=== PATIENT | female | born 1980 | race Caucasian/White ===

== ENCOUNTER 2017-08-24 10:33 | Emergency (ER) | payer OTHER ==
[~2017-08-24] VITALS: Ht 170.2 cm; Wt 97.5 kg
[2017-08-24 15:51] VITALS: BP 131/80
--- NOTE | 2017-08-24 16:56 | ED NECK/BACK PAIN COMPLAINT ---
History of Present Illness General Chief Complaint: Low Back Pain/Injury Stated Complaint: BACK PAIN Source: patient Exam Limitations: no limitations Vital Signs & Intake/Output Vital Signs & Intake/Output ED Intake and Output 08/25 0000 08/24 1200 Intake Total 0 Output Total Balance 0 Intake, Oral 0 Patient 215 lb Weight Weight Reported by Patient Measurement Method Allergies Coded Allergies: Sulfa (Sulfonamide Antibiotics) (Mild, RASH 08/24/17) trimethoprim (Mild, RASH 08/24/17) Reconcile Medications Hydrocodone/Acetaminophen (Vicodin 5-300 MG Tablet) 5 MG-300 MG TABLET 1 TAB PO BID PRN PAIN Meloxicam (Mobic) 15 MG TABLET 1 TAB PO DAILY PRN PAIN Ondansetron HCl (Zofran) 4 MG TABLET 1 TAB PO Q6-8P PRN NAUSEA Triage Note: PT C/O RIGHT SIDED BACK PAIN THAT COMES AROUND TO HER ABDOMEN AND DOWN RIGHT LEG X 2 WEEKS Triage Nurses Notes Reviewed? yes Onset: Abrupt Duration: waxing and waning Timing: recent history Location: paraspinous muscles : No Patient currently breastfeeds: No HPI: Patient is a 37-year-old female with past medical history hypertension and kidney stones who presents to emergency room with concerns of a 2 week history waxing and waning right lateral back pain with radiation of pain to right flank and groin. Patient states that sometimes movement makes worse however symptoms pain is paroxysmal in nature. Patient has been taking ibuprofen with relief of symptoms. Patient has had intermittent nausea with no emesis Patient denies any fever chills chest pain shortness breath dysuria hematuria vaginal bleeding or discharge. She can tolerate by mouth (Ryan Red) Past History Travel History Traveled to [place] past 21 day No Medical History Any Pertinent Medical History? see below for history Cardiovascular: hypertension Surgical History Surgical History: non-contributory Psychosocial History Who do you live with Mother What is your primary language Albanian Tobacco Use: Never used ETOH Use: occasional use Illicit Drug Use: denies illicit drug use Family History Hx Contributory? No (Ryan Red) Review of Systems Review of Systems Constitutional: Reports: no symptoms. Eyes: Reports: no symptoms. Ears, Nose, Throat, Mouth: Reports: no symptoms. Respiratory: Reports: no symptoms. Cardiovascular: Reports: no symptoms. Gastrointestinal/Abdominal: Reports: see HPI. Musculoskeletal: Reports: see HPI, back pain. Skin: Reports: no symptoms. Neurological/Psychological: Reports: no symptoms. All Other Systems: Reviewed and Negative (Ryan Red) Physical Exam Physical Exam General Appearance: no apparent distress, obese Head: atraumatic Eyes: Bilateral: normal appearance. Ears, Nose, Throat, Mouth: hearing grossly normal, moist mucous membrane Neck: normal inspection, supple Respiratory: no respiratory distress Cardiovascular: regular rate/rhythm Gastrointestinal: MILD RIGHT FLANK PAIN NO RLQ PAIN NO PERITONEAL PAIN Back: NO CVA TENDERNESS Extremities: non-tender Neurologic/Psych: no motor/sensory deficits, awake Skin: intact, normal color, warm/dry Core Measures CVA/TIA Diagnosis: No (Ryan Red) Progress Differential Diagnosis: C spine injury, carotid dissection, cauda equina syn, herniated disc, myofascial strain, pyelo/UTI, sciatica, spinal cord inj, thoracic outlet syn, T/L spine injury, ureterolithiasis Plan of Care: Orders Procedure Date/time Status URINE 08/24 1656 Complete URINALYSIS 08/24 1656 Complete COMPREHENSIVE METABOLIC PANEL 08/24 1656 Complete CBC WITHOUT DIFFERENTIAL 08/24 1656 Complete Laboratory Tests 08/24/17 1740: Urine Color YEL, Urine Clarity CLEAR, Urine pH 5.5, Ur Specific [place] >= 1.030 , Urine Protein NEG, Urine Ketones NEG, Urine Nitrite NEG, Urine Bilirubin NEG, Urine Urobilinogen 0.2, Ur Leukocyte Esterase NEG, Ur Microscopic EXAM NOT REQUIRED, Urine Hemoglobin NEG, Urine Glucose NEG, Urine Test NEGATIVE 08/24/17 1735: Anion Gap 14, Estimated GFR > 60, BUN/Creatinine Ratio 20.0, Glucose 83, Calcium 9.2, Total Bilirubin 1.1, AST 14, ALT 25, Alkaline Phosphatase 69, Total Protein 6.9, Albumin 4.3, Globulin 2.6, Albumin/Globulin Ratio 1.7, CBC w Diff NO MAN DIFF REQ, RBC 4.48, MCV 88.5, MCH 30.4, MCHC 34.3, RDW 13.1, MPV 7.8, Gran % 61.1, Lymphocytes % 27.3, Monocytes % 8.5, Eosinophils % 2.6, Basophils % 0.5, Absolute Granulocytes 4.6, Absolute Lymphocytes 2.1, Absolute Monocytes 0.6, Absolute Eosinophils 0.2, Absolute Basophils 0 Patient on initial examination dressing times a bedside denies any medications for nausea or pain when offered 1747 Currently blood work urinalysis ultrasound currently pending patient declines pain medication when offered Due to history of present illness and exam findings or suspicion of lumbar strain versus renal colic or kidney stone Discussed hand off with DAVID HERNANDEZ PA-C Radiology Impression: PATIENT: ANA RUGGIERO PRESENT AGE: 37 PATIENT ACCOUNT NO: [id number] : 78 LOCATION: [facility] ORDERING PHYSICIAN: Ryan FUENTES SERVICE DATE: 08/24/17 EXAM TYPE: US - US-RENAL/KIDNEY EXAMINATION: US RETROPERITONEAL COMPLETE (RENAL) CLINICAL INFORMATION: Right back pain with radiation to right flank and groin. COMPARISON : Abdominal ultrasound dated 03/17/2016; CT abdomen and pelvis dated 11/05/2011. TECHNIQUE: Real-time imaging of the kidneys and bladder. FINDINGS: RIGHT KIDNEY: 11.2 x 4.4 x 6.1 cm (SAG x AP x TRV). The kidney is normal in size, contour, and echogenicity. Renal cortical thickness is normal. No parenchymal lesions. At the upper pole, a 5 mm nonobstructing calculus is seen with twinkle artifact. At the interpolar aspect, a 4 mm nonobstructing calculus is seen with twinkle artifact. No hydronephrosis. LEFT KIDNEY: 12.2 x 4.3 x 4.5 cm (SAG x AP x TRV). The kidney is normal in size, contour, and echogenicity. Renal cortical thickness is normal. No calculi or focal parenchymal lesions. No hydronephrosis. BLADDER: Partially distended. Bilateral ureteral jets are none demonstrated. Pre-void volume is 20 mL. IMPRESSION: Nonobstructing right renal calculi are seen, as detailed. No left renal calculus is seen. There is no hydronephrosis bilaterally. DICTATED BY: Teo Soliman MD DATE/TIME DICTATED:08/24/171750 EQUAL OPPORTUNITY REPRESENTATIVE:JASON DATE/TIME TRANSCRIBED:08/24/171750 CONFIDENTIAL, DO NOT COPY WITHOUT APPROPRIATE AUTHORIZATION. <Electronically signed in Other Vendor System> SIGNED BY: Teo Soliman MD 08/24/171756 Hand-Off Endorsed To: David Loredo Endorsed Time: 1747 Pending: labs, ultrasound (Sisi FUENTES,Ryan) Diagnostic Imaging: Viewed by Me: Ultrasound. Discussed w/RAD: Ultrasound. Radiology Impression: PATIENT: ANA RUGGIERO PRESENT AGE: 37 PATIENT ACCOUNT NO: [id number] : 78 LOCATION: [facility] ORDERING PHYSICIAN: Ryan FUENTES SERVICE DATE: 08/24/17 EXAM TYPE: US - US-RENAL/KIDNEY EXAMINATION: US RETROPERITONEAL COMPLETE (RENAL) CLINICAL INFORMATION: Right back pain with radiation to right flank and groin. COMPARISON : Abdominal ultrasound dated 03/17/2016; CT abdomen and pelvis dated 11/05/2011. TECHNIQUE: Real-time imaging of the kidneys and bladder. FINDINGS: RIGHT KIDNEY: 11.2 x 4.4 x 6.1 cm (SAG x AP x TRV). The kidney is normal in size, contour, and echogenicity. Renal cortical thickness is normal. No parenchymal lesions. At the upper pole, a 5 mm nonobstructing calculus is seen with twinkle artifact. At the interpolar aspect, a 4 mm nonobstructing calculus is seen with twinkle artifact. No hydronephrosis. LEFT KIDNEY: 12.2 x 4.3 x 4.5 cm (SAG x AP x TRV). The kidney is normal in size, contour, and echogenicity. Renal cortical thickness is normal. No calculi or focal parenchymal lesions. No hydronephrosis. BLADDER: Partially distended. Bilateral ureteral jets are none demonstrated. Pre-void volume is 20 mL. IMPRESSION: Nonobstructing right renal calculi are seen, as detailed. No left renal calculus is seen. There is no hydronephrosis bilaterally. DICTATED BY: Teo Soliman MD DATE/TIME DICTATED:08/24/171750 EQUAL OPPORTUNITY REPRESENTATIVE:JASON DATE/TIME TRANSCRIBED:08/24/171750 CONFIDENTIAL, DO NOT COPY WITHOUT APPROPRIATE AUTHORIZATION. <Electronically signed in Other Vendor System> SIGNED BY: Teo Soliman MD 08/24/171756 (David Loredo) Departure Departure Disposition: HOME OR SELF CARE Condition: Stable Clinical Impression Primary Impression: Flank pain Referrals: Rossana LIU,Ann Marie Dubose (PCP/Family) Gunnar Condon MD Departure Forms: Customer Survey General Discharge Information Prescriptions: Current Visit Scripts Hydrocodone/Acetaminophen (Vicodin 5-300 MG Tablet) 1 TAB PO BID PRN PAIN #8 TAB Meloxicam (Mobic) 1 TAB PO DAILY PRN PAIN #10 TAB Ondansetron HCl (Zofran) 1 TAB PO Q6-8P PRN NAUSEA #10 TAB (Sisi FUENTES,Ryan) Departure Additional Instructions: As discussed begin the prescription of Zofran for nausea meloxicam for pain and Vicodin for breakthrough pain relief, if symptoms worsen return to emergency room, follow-up with Dr. Condon if symptoms persist this week Prescriptions waiting at [facility] Please go over all results of today's visit with your primary care doctor. Contact your primary care doctor to let them know you were here in the emergency room. There may be nonspecific findings which may not be related to your visit today here in the emergency room but may require further evaluation and chronic monitoring by your primary care doctor. If you had a laceration today the chance of foreign body always remains. You should follow-up with your primary care doctor for recheck in 3-5 days for a wound check. If you had an x-ray done there is a chance that a fracture could have been missed on initial read and you should follow-up with your primary care doctor for repeat x-rays if symptoms persist. If your blood pressure was elevated here in the emergency room please have rechecked by [facility] primary care doctor within the next 48. If you were prescribed a narcotic here in the emergency room or any type of controlled substances you're not allowed to drive while taking this medication or operate any type of heavy machinery. Narcotics can make you feel lightheaded dizziness nausea and can cause constipation. You may need to apple picker a stool softener. Thank you for choosing [facility] emergency room. Please return to the emergency room immediately if you have any other concerns worsening of symptoms. Comments 08/24/2017 7:11:09 PM Patient resting comfortably in no apparent distress. She is nontoxic-appearing. Renal colic versus musculoskeletal pain. Safe for discharge at this time. No white count. Afebrile. SHE UDNERSTANDS/AGREES WITH PLAN OF ACRE (Chau FUENTES,David) PA/NEW ACCOUNTS BANKING REPRESENTATIVE Co-Sign Statement Statement: ED Attending supervision documentation- [] I saw and evaluated the patient. I have also reviewed all the pertinent lab results and diagnostic results. I agree with the findings and the plan of care as documented in the PA's/NEW ACCOUNTS BANKING REPRESENTATIVE's documentation. [x] I have reviewed the ED Record and agree with the PA's/NEW ACCOUNTS BANKING REPRESENTATIVE's documentation. [] Additions or exceptions (if any) to the PAs/NEW ACCOUNTS BANKING REPRESENTATIVE's note and plan are summarized below: [] (Harry Arias DO)
[2017-08-24] MEDS ORDERED: MOBIC15 M1 PO (17:04)
[2017-08-24] MEDS ORDERED: ZOFRAN4 M2 PO (17:04)
[2017-08-24] MEDS ORDERED: VICODIN 5-3001 EACH PO (17:04)
--- NOTE | 2017-08-24 17:57 | ULTRASOUND REPORT ---
EXAMINATION: US RETROPERITONEAL COMPLETE (RENAL) CLINICAL INFORMATION: Right back pain with radiation to right flank and groin. COMPARISON: Abdominal ultrasound dated 03/17/2016; CT abdomen and pelvis dated 11/05/2011. TECHNIQUE: Real-time imaging of the kidneys and bladder. FINDINGS: RIGHT KIDNEY: 11.2 x 4.4 x 6.1 cm (SAG x AP x TRV). The kidney is normal in size, contour, and echogenicity. Renal cortical thickness is normal. No parenchymal lesions. At the upper pole, a 5 mm nonobstructing calculus is seen with twinkle artifact. At the interpolar aspect, a 4 mm nonobstructing calculus is seen with twinkle artifact. No hydronephrosis. LEFT KIDNEY: 12.2 x 4.3 x 4.5 cm (SAG x AP x TRV). The kidney is normal in size, contour, and echogenicity. Renal cortical thickness is normal. No calculi or focal parenchymal lesions. No hydronephrosis. BLADDER: Partially distended. Bilateral ureteral jets are none demonstrated. Pre-void volume is 20 mL. IMPRESSION: Nonobstructing right renal calculi are seen, as detailed. No left renal calculus is seen. There is no hydronephrosis bilaterally.
[2017-08-24 18:05] LABS: ABSOLUTE BASOPHIL COUNT 0 /CUMM (0.0-0.2); ABSOLUTE EOSINOPHIL COUNT 0.2 /CUMM (0.0-0.7); ABSOLUTE GRANULOCYTE CT 4.6 /CUMM (1.4-6.5); ABSOLUTE LYMPH COUNT 2.1 /CUMM (1.2-3.4); ABSOLUTE MONOCYTE COUNT 0.6 /CUMM (0.10-0.60); BASOPHIL % 0.5 % (0.0-2.0); EOSINOPHIL % 2.6 % (0-5); GRANULOCYTE % 61.1 % (42.2-75.2); HEMATOCRIT 39.6 % (37-47); MEAN CORPUSCULAR HGB 30.4 PG (27.0-31.0); MEAN CORPUSCULAR HGB CONC 34.3 G/DL (33.0-37.0); MEAN CORPUSCULAR VOLUME 88.5 FL (81.0-99.0); MEAN PLATELET VOLUME 7.8 FL (7.4-10.4); PLATELET COUNT 259 /CUMM (130-400); RBC DISTRIBUTION WIDTH 13.1 % (11.5-14.5); RED BLOOD CELL CT 4.48 /CUMM (4.20-5.40); WHITE BLOOD CELL COUNT 7.6 /CUMM (4.8-10.8)
[2017-09-04] MEDS ORDERED: LABETALOL HCL200 M1 PO (17:52)
[2017-09-04] MEDS ORDERED: AMLODIPINE BESY10 M1 PO (17:52)
== END 2017-08-24 19:34 ==
LOC: ERH 10:33
PROVIDERS: Physician Assistant
DX: R10.31 Right lower quadrant pain (principal)
CPT/HCPCS: 76775; 81003; 81025

== ENCOUNTER → 2017-09-08 | Day surgery (SDC) | payer OTHER ==
[~2017-09-08] VITALS: Ht 170.2 cm; Wt 97.5 kg
[~2017-09-08] MED LIST: AMLODIPINE BESY10 M1 PO; LABETALOL HCL200 M1 PO; MOBIC15 M1 PO; VICODIN 5-3001 EACH PO; ZOFRAN4 M2 PO
--- NOTE | 2017-09-08 13:00 | Operative Report ---
Operative/Inv Procedure Report Surgery Date: 09/08/17 Name of Procedure: right renal ESWL, fluoroscopy Pre-Operative Diagnosis: right stone with colic Post-Operative Diagnosis: same Estimated Blood Loss: none Surgeon/Apple Packing Header: Gunnar Condon MD Anesthesia: moderate sedation Specimens: none Complications: none Operative/Procedure Note Note: The patient was taken to the operating room placed on the OR table in supine position. Timeout was performed, with the patient awake, in order to confirm correct procedure, laterality, anesthesia, and other pertinent perioperative information. After adequate anesthesia and antibiotics, the patient was then positioned over the ESWL table cutout overlying the treatment dome. Fluoroscopy, using AP and oblique views, as well as renal ultrasound, or performed in order to locate the stone. The position of the stone was optimized, and positioned in the middle of the ESWL crosshairs. The stone was measured to be approximately 6 mm in size. ESWL was initiated at low power, and after 200 shockwaves delivered, noting the patient's tolerance to the shockwaves, the power was increased to maximum. At the end of 2500 shockwaves, fluoroscopy confirms the change in consistency of the stone, indicating shattering of the stone. All sponge needle and instrument count were correct at the end of the case. The patient tolerated the procedures well, and was taken to the recovery room in satisfactory condition. The patient is discharged home with pain medication, and follow-up instructions with in 2-3 weeks' time. Discharge Disposition: Same Day Admissions CC: Gunnar Condon MD
== END ==
LOC: STS 03:31
DX: N20.0 Calculus of kidney (principal); Z87.442 Personal history of urinary calculi; I10 Essential (primary) hypertension
CPT/HCPCS: 81025; J2250

== ENCOUNTER → 2018-01-19 | Day surgery (SDC) | payer OTHER ==
[~2018-01-19] VITALS: Ht 170.2 cm; Wt 99.8 kg
--- NOTE | 2018-01-19 16:03 | Operative Report ---
Operative/Inv Procedure Report Surgery Date: 01/19/18 Name of Procedure: right ureter ESWL:fluoroscopy Pre-Operative Diagnosis: right ureter stone with colic Post-Operative Diagnosis: same Estimated Blood Loss: none Surgeon/Rip And Groove Machine Operator: Gunnar Condon MD Anesthesia: moderate sedation Complications: none Operative/Procedure Note Note: The patient was taken to the operating room and placed on the ESWL table in supine position. With the patient awake, timeout was performed to cofirm correct identity, procedure, laterality, anesthesia, and other pertinent inessa- operative information. The patient was positioned over the ESWL table cut-out, overlying the dome of the shockwave generator, with on his right flank. C-arm fluroscopy, as well as renal US, was used to locate the stone, and evaluate the RIGHT kidney. The stone was visible on fluoroscopy at the right distal-ureter, measuring approximately 4 mm. Renal US confirmed mild hydronephrosis. No other stone/ tumor was visualized in the right kidney. After adequate anesthesia, the right ureter stone's position was optimized for Shockwave lithotrypsy using fluoroscopy in AP and oblique views. The E.S.W.L. was initiated at low power levels x 200 shocks. After noting the patient's tolerance to the shockwaves, the shock wave power level was quickly maximized. Toward the end of the procedure, the composition of the stone had changed significantly, indicating the pulverization of the ureter stone. A total of 3000 shockwaves were delivered to the stone in order to achieve adequate lithotrypsy. The patient tolerated both the procedure well, was awakened, and taken to recovery in satisfactory condition via stretcher. The pt will be dischared home with pain meds, diet orders, and intructions to catch fragments with straining the urine. The patient is to have follow-up renal ultrasound and KUB in 1-2 weeks, prior to follow-up visit in my office. Findings: The patient was taken to the operating room and placed on the ESWL table in supine position. With the patient awake, timeout was performed to cofirm correct identity, procedure, laterality, anesthesia, and other pertinent inessa- operative information. The patient was positioned over the ESWL table cut-out, overlying the dome of the shockwave generator, with on his right flank. C-arm fluroscopy, as well as renal US, was used to locate the stone, and evaluate the RIGHT kidney. The stone was visible on fluoroscopy at the right distal-ureter, measuring approximately 4 mm. Renal US confirmed mild hydronephrosis. No other stone/ tumor was visualized in the right kidney. After adequate anesthesia, the right ureter stone's position was optimized for Shockwave lithotrypsy using fluoroscopy in AP and oblique views. The E.S.W.L. was initiated at low power levels x 200 shocks. After noting the patient's tolerance to the shockwaves, the shock wave power level was quickly maximized. Toward the end of the procedure, the composition of the stone had changed significantly, indicating the pulverization of the ureter stone. A total of 3000 shockwaves were delivered to the stone in order to achieve adequate lithotrypsy. The patient tolerated both the procedure well, was awakened, and taken to recovery in satisfactory condition via stretcher. The pt will be dischared home with pain meds, diet orders, and intructions to catch fragments with straining the urine. The patient is to have follow-up renal ultrasound and KUB in 1-2 weeks, prior to follow-up visit in my office. Discharge Disposition: Same Day Admissions CC: Gunnar Condon MD
== END ==
LOC: STS 02:14
DX: N13.2 Hydronephrosis with renal and ureteral calculous obstruction (principal); Z87.442 Personal history of urinary calculi; E66.9 Obesity, unspecified
CPT/HCPCS: 81025; J2250

== ENCOUNTER → 2018-04-20 | Day surgery (SDC) | payer OTHER ==
[~2018-04-20] VITALS: Ht 170.2 cm; Wt 102.5 kg
[~2018-04-20] MED LIST changes: +CYCLOBENZAPRINE10 M1 PO; +IBUPROFEN800 M1 PO; +NORLYDA0.35 MG PO; +VITAMIN D250000 UNIT PO
--- NOTE | 2018-04-20 08:51 | Operative Report ---
Operative/Inv Procedure Report Surgery Date: 04/20/18 Name of Procedure: david ESWL, fluoroscopy Pre-Operative Diagnosis: right stone with colic Post-Operative Diagnosis: same Estimated Blood Loss: none Surgeon/Drill Operator Pneumatic: Gunnar Condon MD Anesthesia: moderate sedation Specimens: none Complications: none Operative/Procedure Note Note: The patient was taken to the operating room placed on the OR table in supine position. Timeout was performed, with the patient awake, in order to confirm correct procedure, laterality, anesthesia, and other pertinent perioperative information. After adequate anesthesia and antibiotics, the patient was then positioned over the ESWL table cutout overlying the treatment dome. Fluoroscopy, using AP and oblique views, as well as renal ultrasound, or performed in order to locate the stone. The position of the RIGHT renal stone was optimized, and positioned in the middle of the ESWL crosshairs. The stone was measured to be approximately 6 mm in size. ESWL was initiated at low power, and after 200 shockwaves delivered , noting the patient's tolerance to the shockwaves, the power was increased to maximum. At the end of 2500 shockwaves, fluoroscopy confirms the change in consistency of the stone, indicating shattering of the stone. All sponge needle and instrument count were correct at the end of the case. The patient tolerated the procedures well, and was taken to the recovery room in satisfactory condition. The patient is discharged home with pain medication, and follow-up instructions with in 2-3 weeks' time. Discharge Disposition: Same Day Admissions CC: Gunnar Condon MD
== END ==
LOC: STS 03:17
DX: N20.0 Calculus of kidney (principal); I10 Essential (primary) hypertension; E66.9 Obesity, unspecified; Z68.35 Body mass index [BMI] 35.0-35.9, adult
CPT/HCPCS: 36415; 81025; 93005; 93010; J2250